=== PATIENT | female | born 1990 | race Hispanic/Latino ===

== ENCOUNTER 2024-09-08 15:31 | Observation (INO) | payer BC ==
[2024-09-08 16:14] LABS: APPEARANCE,URINE CLEAR (CLEAR); BILIRUBIN,URINE NEGATIVE (NEGATIVE); COLOR,URINE COLORLESS (YELLOW); GLUCOSE, URINE (UA) NEGATIVE (NEGATIVE); KETONES,URINE NEGATIVE (NEGATIVE); LEUKOCYTE ESTERASE ,URINE NEGATIVE Leu/uL (NEGATIVE); NITRATE,URINE NEGATIVE (NEGATIVE); OCCULT BLOOD,URINE NEGATIVE (NEGATIVE); PH,URINE 6.5 (5.0-8.0); PROTEIN,URINE NEGATIVE (NEGATIVE); UROBILINOGEN,URINE 0.2 mg/dL (0.2-1.0)
[2024-09-08 16:15] LABS: ADD UA MICROSCOPIC YES
[2024-09-08 16:17] LABS: MUCUS,URINE RARE LPF (None Seen); RBC,URINE 0-1 /HPF (0-1); SQUAMOUS EPITHELIAL CELL,UR RARE /HPF (0-2); WBC,URINE 0-1 /HPF (0-1)
[2024-09-08 16:24] LABS: CREATININE 0.5 mg/dL (0.5-1.0); POTASSIUM 3.9 mmol/L (3.5-5.1)
[2024-09-08 16:26] LABS: INR <= 0.93 (0.85-1.15); PROTHROMBIN TIME 9.8 SEC (9.6-11.6)
[2024-09-08 16:29] LABS: ALBUMIN 2.6 g/dL (3.5-5.0); BASOPHILS # (AUTO) 0.02 K/uL (0.00-0.20); BASOPHILS % (AUTO) 0.2 % (0.0-5.0); BILIRUBIN,TOTAL 0.2 mg/dL (0.2-1.0); EOSINOPHILS # (AUTO) 0.15 K/uL (0.00-0.70); EOSINOPHILS % (AUTO) 1.4 % (0.0-8.0); HEMATOCRIT 33.2 % (36-48); IMMATURE GRANULOCYTE ABSOLUTE 0.04 K/uL (0-1); LYMPHOCYTES # (AUTO) 1.8 K/uL (1.0-4.8); LYMPHOCYTES % (AUTO) 16.5 % (21.0-51.0); MEAN CORPUSCULAR HEMOGLOBIN 28.7 pg (27.0-33.0); MEAN CORPUSCULAR HGB CONC 32.8 g/dL (32.0-36.0); MEAN CORPUSCULAR VOLUME 87.4 fL (79-99); MONOCYTES # (AUTO) 0.7 K/uL (0.1-1.0); MONOCYTES % (AUTO) 6.7 % (3.0-13.0); NEUTROPHILS % (AUTO) 74.8 % (40.0-77.0); PLATELET COUNT (AUTO) 232 K/uL (130-400); RED CELL DISTRIBUTION WIDTH 15.6 % (11.0-15.5); TOTAL PROTEIN, SERUM 6.8 g/dL (6.0-8.3); URIC ACID 3.6 mg/dL (2.6-7.2); WHITE BLOOD COUNT (AUTO) 10.7 K/uL (4.8-10.8)
[2024-09-08 16:35] LABS: FIBRINOGEN 562 mg/dL (180-350)
--- NOTE | 2024-09-08 17:45 | HMCIMG ---
US OB >14 WEEKS REASON: 33 WEEKS ELEVATED BLOOD PRESSURE/ WELL BEING COMPARISON: None TECHNIQUE: Routine OB sonogram was performed. FINDINGS: There is a single fetus in cephalic presentation with positive motion and heartbeat, 137 BPM. Composite gestational age is 34 weeks 6 days +/- 3 weeks. Placenta is fundal and grade 2 with SHERRI 12.9 cm. Estimated weight is 2574 g. There is normal-appearing anatomy. IMPRESSION: 1. Single fetus 34 weeks and 6 days +/- 3 weeks composite gestational age.
== END 2024-09-08 18:00 | disposition home or self-care (01) ==
LOC: LDH 15:42
PROVIDERS: ADMIT Obstetrics & Gynecology; ATTEND Obstetrics & Gynecology
DX: O26.893 Other specified pregnancy related conditions, third trimester (principal); R03.0 Elevated blood-pressure reading, without diagnosis of hypertension; O24.419 Gestational diabetes mellitus in pregnancy, unspecified control; Z3A.33 33 weeks gestation of pregnancy; Z79.899 Other long term (current) drug therapy; Z86.2 Personal history of diseases of the blood and blood-forming organs and certain disorders involving the immune mechanism
CPT/HCPCS: 84550; 80053; 85025; 85384; 85610; 85730; 81001; 36415; 76805; G0378 ×2; G0379